=== PATIENT | female | born 1960 | race Hispanic/Latino ===

== ENCOUNTER 2017-10-05 23:07 | Emergency (ER) | payer MEDICAID ==
[2017-10-05 23:07] VITALS: BMI 28.6
[2017-10-05 23:19] VITALS: BP 141/84; PULSE 103; RESP 22; TEMP 98.1; O2SAT 100
--- NOTE | 2017-10-05 23:55 | C.PDOC ---
History Of Present Illness 57 years old patient with Hx of extensive depressive disorder presents to ED with complaints of feeling anxious and panicky while washing the dishes at home. Patient states she did an albuterol treatment which caused her more anxious. Patient states she had a recent vocal cords surgery and states she got worse and went to vocal cord specialist in [place] but is pending a follow up. Patient was examined by Dr. Dumont and has pharyngitis. Patient denies any other physical complaints. Per on bed side, pharyngitis voice has not been changed in last 2 weeks. Time Seen by Provider: 10/05/17 23:48 Chief Complaint (Nursing): Shortness Of Breath History Per: Patient History/Exam Limitations: no limitations Onset/Duration Of Symptoms: Hrs Current Symptoms Are (Timing): Still Present Sick Contacts (Context): None Associated Symptoms: denies: Fever, Chills, Sore Throat, Vomiting, Diarrhea Ear Symptoms: Bilateral: None Severity: Mild Pain Scale Rating Of: 3 Recent travel outside of the [facility]: No Past Medical History Reviewed: Historical Data, Nursing Documentation, Vital Signs Vital Signs: Last Vital Signs Temp 98.1 F 10/05/17 23:15 Pulse 103 H 10/05/17 23:15 Resp 22 10/05/17 23:29 BP 141/84 10/05/17 23:15 Pulse Ox 100 10/05/17 23:55 - Medical History PMH: Anxiety, Asthma, COPD, Depression, Gastritis, Pneumonia - [facility] Procedures CLOSED [ENDOSCOPIC] BIOPSY OF LARYNX (02/12/13) CONTINUOUS INVASIVE MECHANICAL VENTILATION =/>96 CONSEC HRS (04/08/15) ENDOSCOPIC BRONCHIAL BX (04/08/15) INSERT ENDOTRACHEAL TUBE (04/08/15) PULMON ART WEDGE MONITOR (04/08/15) VENOUS CATHETERIZATION NEC (04/08/15) Family History: States: No Known Family Hx - Social History Hx Tobacco Use: Yes Hx Alcohol Use: Yes Hx Substance Use: No - Immunization History Hx Tetanus Toxoid Vaccination: No Hx Influenza Vaccination: No Hx Pneumococcal Vaccination: No Review Of Systems Constitutional: Negative for: Fever, Chills Neurological: Negative for: Weakness Psych: Positive for: Anxiety. Negative for: Suicidal ideation Physical Exam - Physical Exam Appears: Non-toxic, Other (Awake and alert; No more panic and feels calm ) Skin: Normal Color, Warm, Dry Head: Atraumatic, Normacephalic Eye(s): bilateral: Normal Inspection Ear(s): Bilateral: Normal Oral Mucosa: Moist Throat: Normal Neck: Supple Chest: Symmetrical, No Tenderness Cardiovascular: Rhythm Regular Respiratory: Normal Breath Sounds, No Rales, No Rhonchi, No Wheezing Gastrointestinal/Abdominal: Soft, No Tenderness Neurological/Psych: Oriented x3, Normal Speech, Normal Cognition ED Course And Treatment O2 Sat by Pulse Oximetry: 100 (Room air) Pulse Ox Interpretation: Normal Medical Decision Making Medical Decision Making: anxiety exacerbation baseline at [facility] (baseline pharyngitis due to recent vocal cord surgery) normal airway and lungs. outpatient f/u w ENT as per Dr. Florian and her ENT in [place] where vocal cord surgery performed. Disposition Doctor Will See Patient In The: Office Counseled Patient/Family Regarding: Studies Performed, Diagnosis - Disposition Referrals: Maldonado Florian MD [Staff Provider] - Jaziel Silverman MD [Medical Doctor] - Disposition: HOME/ ROUTINE Disposition Time: 23:55 Condition: GOOD Additional Instructions: continue your normal flu/cold medicines. Follow-up with your ENT in [place] as previously instructed. Follow-up with Dr. Florian as needed. Continue your outpatient psychiatric follow-up as usual. Instructions: Pharyngitis (ED), Anxiety (ED) Forms: [facility] (Lithuanian) - Clinical Impression Clinical Impression: Pharyngitis, Anxiety - Scribe Statement The provider has reviewed the documentation as recorded by the Scribe Jamal Castellano All medical record entries made by the Scribe were at my direction and personally dictated by me. I have reviewed the chart and agree that the record accurately reflects my personal performance of the history, physical exam, medical decision making, and the department course for this patient. I have also personally directed, reviewed, and agree with the discharge instructions and disposition.
== END 2017-10-06 00:20 | disposition home or self-care (01) ==
LOC: C.ER 23:07
DX: F41.9 Anxiety disorder, unspecified (principal); J02.9 Acute pharyngitis, unspecified; F17.210 Nicotine dependence, cigarettes, uncomplicated